=== PATIENT | male | born 1985 | race African-American/Black ===

== ENCOUNTER 2018-08-06 03:37 | Emergency (ER) | payer MEDICAID ==
[~2018-08-06] VITALS: Ht 185.4 cm; Wt 75.0 kg
[2018-08-06] MEDS ORDERED: PREDNISONE 20MG TABLET PO ONE (04:00)
[2018-08-06 04:12] VITALS: BP 133/94
== END 2018-08-06 04:19 | disposition home or self-care (01) ==
LOC: ER 03:37
DX: L50.0 Allergic urticaria (principal); I10 Essential (primary) hypertension; F17.200 Nicotine dependence, unspecified, uncomplicated
CPT/HCPCS: 99283; J7512

== ENCOUNTER 2019-01-09 12:15 | Emergency (ER) | payer MEDICAID ==
[~2019-01-09] VITALS: Ht 188 cm; Wt 74.0 kg
[2019-01-09 17:00] VITALS: BP 105/67
== END 2019-01-09 17:15 | disposition home or self-care (01) ==
LOC: ER 12:15
DX: R00.2 Palpitations (principal); R07.89 Other chest pain; F12.10 Cannabis abuse, uncomplicated
CPT/HCPCS: 71045; 93005; 99283